=== PATIENT | female | born 1945 | race Caucasian/White ===

== ENCOUNTER 2019-02-01 19:53 | Emergency (ER) | payer MEDICARE, OTHER ==
[~2019-02-01] VITALS: Ht 154.9 cm; Wt 72.7 kg
[~2019-02-01 19:53] MED LIST: ALPR0.5T PO
[2019-02-01 19:59] VITALS: Ht 154.9 cm; Wt 72.7 kg
[2019-02-01] MEDS ORDERED: KETOROLAC 30 MG INJ IM STA (20:16)
--- NOTE | 2019-02-01 20:19 | ERD ---
ER Documentation Chief Complaint Chief Complaint BIBRA from home,R leg pain,ambulates w/ walker at home HPI 73-year-old woman complaining of right knee and right leg pain x3 days, pain worse with ambulation and bearing weight. She has a long history of bilateral knee osteoarthritis and states she has had similar pain in the past but not as severe. Patient denies recent falls, no redness to the knee or leg, no fevers or chills, no complaints of paresis or paresthesias. Patient denies back pain or weight loss. Patient was transported here by EMS without further com plications ROS All systems reviewed and are negative except as per history of present illness. Medications Home Meds Active Scripts Meloxicam* (Meloxicam*) 7.5 Mg Tablet, 7.5 MG PO DAILY PRN for PAIN LEVEL 1-5, #30 TAB Prov:RUSSEL PAEZ MD 02/01/19 Diclofenac Sodium* (Voltaren* Gel) 1% -100 Gm Gel, 2 GM TOP TID PRN for PAIN AND/OR INFLAMMATION, #1 TUB Prov:RUSSEL PAEZ MD 02/01/19 Alprazolam* (Xanax*) 0.5 Mg Tab, 0.5 MG PO Q8H PRN for ANXIETY, #12 TAB Prov:RUSSEL PAEZ MD 05/24/15 Allergies Allergies: Coded Allergies: No Known Allergy (Unverified , 05/24/15) PMhx/Soc Osteoarthritis, obesity, anxiety, CAD status post PTCA and stent placement, hypertension History of Surgery: Yes (cardiac stent) Hx Cardiac Disorders: Yes (CAD, htn) Hx Alcohol Use: No Hx Substance Use: No Hx Tobacco Use: No Smoking Status: Never smoker FmHx Family History: No diabetes Physical Exam Vitals Vital Signs Date Temp Pulse Resp B/P (MAP) Pulse Ox O2 O2 Flow FiO2 Time Delivery Rate 02/01/19 99.0 65 18 126/68 98 19:59 (87) Physical Exam GENERAL: Well-developed, well-nourished, well-hydrated, moderate discomfort, afebrile HEENT: Moist mucous membranes, pink conjunctiva, no cervical spine tenderness or step-off deformities, no goiter, no jaundice or icterus, extraocular movements intact without pain. No submandibular induration, and no pharyngeal erythema CARDIAC: Regular rate and rhythm, no murmurs rubs or gallops LUNGS: Clear bilaterally no wheezing crackles or stridor SKIN: Warm and dry to touch, no abrasions, contusions, or hematomas, no lacerations, no ecchymosis, no target lesions, and without ulcers EXTREMITIES: No clubbing cyanosis, 1+ pitting edema in the lower extremities bilaterally, calves are symmetrical although she has mild superficial tenderness over the right anterior knee and lower leg, there is patellar effusion on the right Results 24 hrs Current Medications Medications Dose Sig/Min Start Time Status Last (Trade) Ordered Route PRN Stop Time Admin Dose Reason Admin Ketorolac 30 mg ONCE STAT 02/01/19 DC 02/01/19 Tromethamine IM 20:16 20:51 (Toradol) 02/01/19 20:20 Procedures/MDM I administered Toradol 30 mg IM x1 for pain control. X-ray right knee 3V Interpreted by me: Bones: Osteoarthritic changes Joints: No dislocation Foreign body: None Doppler ultrasound of the right lower extremity was performed, no deep vein thrombosis noted. Cyrus bandage was applied circumferentially around the right knee and leg for comfort and supportive measures. Splint Assessment: Neurovascularly intact post splint placement with good fit. Patient feels much better at this time, and vital signs are normal, symptoms have improved. I did give strict instructions to return to the ED if symptoms continue or worsen, patient will otherwise follow-up with primary care physician. Patient understood instructions and agreed to plan. Disclaimer: Inadvertent spelling and grammatical errors are likely due to EHR/dictation software use and do not reflect on the overall quality of patient care. Also, please note that the electronic time recorded on this note does not necessarily reflect the actual time of the patient encounter. Departure Diagnosis: Primary Impression: Osteoarthritis Osteoarthritis location: knee Osteoarthritis type: primary Laterality: right Qualified Codes: M17.11 - Unilateral primary osteoarthritis, right knee Additional Impression: Knee effusion Laterality: right Qualified Codes: M25.461 - Effusion, right knee Condition: Good RUSSEL PAEZ MD Feb 01, 2019 20:19
[2019-02-01] MEDS ORDERED: MELO7.5T38 PO (20:52)
[2019-02-01] MEDS ORDERED: DICL100G37 TOP (20:52)
[2019-02-01 21:37] VITALS: BP 135/63; PULSE 76; RESP 16
== END 2019-02-01 21:39 | disposition home or self-care (01) ==
LOC: E/R 19:53
DX: M17.11 Unilateral primary osteoarthritis, right knee (principal); M25.461 Effusion, right knee; I10 Essential (primary) hypertension; I25.10 Atherosclerotic heart disease of native coronary artery without angina pectoris; E66.9 Obesity, unspecified; Z98.61 Coronary angioplasty status; Z68.30 Body mass index [BMI] 30.0-30.9, adult
CPT/HCPCS: 73562; 93971; 96372; 99285; J1885